=== PATIENT | female | born 1970 | race Caucasian/White ===

== ENCOUNTER 2020-08-23 13:41 | Emergency (ER) | payer MEDICAID ==
--- NOTE | 2020-08-23 14:08 | EDM.PDOC ---
ED HPI GENERAL MEDICAL PROBLEM - General Chief Complaint: General Stated Complaint: HOT, SWOLLEN LEFT LEG Time Seen by Provider: 08/23/20 13:55 Source of Information: Reports: Patient History Limitations: Reports: No Limitations - History of Present Illness INITIAL COMMENTS - FREE TEXT/NARRATIVE: patient presented to the ER with a c/o redness on b/l LEs. Started 2 days. No sever but Slightly uncomfortable with prolonged standing. Mild itchiness. No recent injury or prolonged trip. This never happened before except 2 days ago . admits a h/o LLE DVT, 7 yrs ago for which she was put on Xeralto. Not on blood thinners anymore. 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 no SOB or CP. No fever or chills. No recent injury or skin wound. No cat or dog scratches Onset: Today Left Lower Leg Pain Score (Numeric/FACES): 7 - Related Data Allergies Allergy/AdvReac Type Severity Reaction Status Date / Time No Known Allergies Allergy Verified 08/23/20 14:27 Home Meds: Home Meds Multivitamin [One-Daily Multi-Vitamin] 1 each PO DAILY 08/23/20 [History] Past Medical History Respiratory History: Reports: None Neurological History: Reports: None Hematologic History: Reports: Anticoagulation Therapy Social & Family History - Tobacco Use Tobacco Use Status *Q: Current Every Day Tobacco User ED ROS GENERAL - Review of Systems Review Of Systems: See Below Constitutional: Reports: No Symptoms HEENT: Reports: No Symptoms Respiratory: Reports: No Symptoms Cardiovascular: Reports: No Symptoms GI/Abdominal: Reports: No Symptoms Musculoskeletal: Reports: No Symptoms Neurological: Reports: No Symptoms ED EXAM, GENERAL - Physical Exam Exam: See Below Exam Limited By: No Limitations General Appearance: Alert, WD/WN, No Apparent Distress Respiratory/Chest: No Respiratory Distress, Lungs Clear Cardiovascular: Normal Peripheral Pulses, Regular Rate, Rhythm GI/Abdominal: Normal Bowel Sounds, Soft, Non-Tender Neurological: Alert, Oriented, No Motor/Sensory Deficits Skin Exam: Dry, Rash (pink/reddish rash. no tenderness to palpation ). No: Ecchymosis, Increased Warmth, Lymphangitis, Mottled, Pallor Course - Vital Signs Last Recorded V/S: Last Vital Signs Temp 36.2 C 08/23/20 14:22 Pulse 77 08/23/20 14:22 Resp 18 08/23/20 14:22 BP 122/77 08/23/20 14:22 Pulse Ox 99 08/23/20 14:22 - Orders/Labs/Meds Labs: Laboratory Tests 08/23/20 08/23/20 Range/Units 14:23 14:23 WBC 10.9 (4.0-11.0) K/uL RBC 4.41 (3.80-5.80) M/uL Hgb 12.6 (11.5-16.5) g/dL Hct 39.0 (37.0-47.0) % MCV 88 (76-96) fL MCH 28.6 (27.0-32.0) pg MCHC 32.3 (31.0-35.0) g/dL RDW 13.1 (11.0-16.0) % Plt Count 331 (150-500) K/uL MPV 10.0 (6.0-10.0) fL D-Dimer, Quantitative 122 (0-400) ng/mL - Re-Assessments/Exams Free Text/Narrative Re-Assessment/Exam: normal temp CBC and DDimer were ordered no e/o leukocytosis or e/o DVT. High suspicious for allergic reaction causing skin irritation will treat with local cortisone ointment. Departure - Departure Time of Disposition: 15:37 Disposition: Home, Self-Care 01 Condition: Good Clinical Impression: Rash due to allergy - Discharge Information *PRESCRIPTION DRUG MONITORING PROGRAM REVIEWED*: Not Applicable *COPY OF PRESCRIPTION DRUG MONITORING REPORT IN PATIENT ZENY: Not Applicable Instructions: Rash, Adult, Allergies, Adult, [id number] Referrals: PCP,None [Primary Care Provider] - Forms: ED Department Discharge Additional Instructions: - apply cortisone ointment on the area per instruction - return if symptoms got worse or any concerns - recommend to avoid any trigger factors and protect your skin from the cleaning chemicals Sepsis Event Note (ED) - Focused Exam Vital Signs: Vital Signs Temp Pulse Resp BP Pulse Ox 08/23/20 14:22 36.2 C 77 18 122/77 99 - Problem List & Annotations (1) Rash due to allergy SNOMED Code(s): 41050406 Code(s): T78.40XA - ALLERGY, UNSPECIFIED, INITIAL ENCOUNTER; R21 - RASH AND OTHER NONSPECIFIC SKIN ERUPTION Status: Acute Priority: Low Current Visit: Yes - Problem List Review Problem List Initiated/Reviewed/Updated: Yes - Assessment/Plan Plan: - apply cortisone ointment on the area per instruction - take oral medications as prescribed - return if symptoms got worse or any concerns - recommend to avoid any trigger factors and protect your skin from the cleaning chemicals
== END 2020-08-23 15:45 | disposition home or self-care (01) ==
LOC: LB.ED 13:41
DX: R21 Rash and other nonspecific skin eruption (principal); Z72.0 Tobacco use; Z86.718 Personal history of other venous thrombosis and embolism; Z79.01 Long term (current) use of anticoagulants
CPT/HCPCS: 36415; 85027; 85379; 99282; 99283